=== PATIENT | female | born 1975 | race African-American/Black ===

== ENCOUNTER 2020-04-18 18:16 | Emergency (ER) | payer MEDICAID, OTHER ==
[~2020-04-18] VITALS: Ht 170.2 cm; Wt 97.3 kg
[2020-04-18] MEDS ORDERED: IBUPROFEN 600MG TABLET PO ONE (20:15)
[2020-04-18] MEDS ORDERED: HYDROCODONE/ACETAMINOPHEN 5/325MG TABLET PO ONE (23:30)
[2020-04-19 01:20] VITALS: BP 115/79
== END 2020-04-19 01:26 | disposition home or self-care (01) ==
LOC: ER 18:16
DX: M25.511 Pain in right shoulder (principal); M79.601 Pain in right arm; M54.5 Low back pain; V49.49XA Driver injured in collision with other motor vehicles in traffic accident, initial encounter; Y93.89 Activity, other specified; Y92.89 Other specified places as the place of occurrence of the external cause; Y99.8 Other external cause status; F12.10 Cannabis abuse, uncomplicated; J45.909 Unspecified asthma, uncomplicated
CPT/HCPCS: 71045; 72100; 73030; 73060; 99284

== ENCOUNTER 2021-05-20 20:03 | Emergency (ER) | payer MEDICAID, OTHER ==
[~2021-05-20] VITALS: Ht 167.6 cm; Wt 104.0 kg
[2021-05-20] MEDS ORDERED: ONDANSETRON 4MG ODT PO STA (21:08)
[2021-05-20] MEDS ORDERED: ACETAMINOPHEN 325MG TABLET PO STA (21:08)
[2021-05-20 21:47] LABS: BASOPHILS % 0.4 % (0.0-2.0); EOSINOPHILS % 4.7 % (0.0-5.0); HEMATOCRIT. 32.5 % (36.0-48.0); HEMOGLOBIN. 10.9 g/dL (12.0-16.0); LYMPHOCYTES % 46.2 % (20.0-50.0); MEAN CORPUSCULAR HEMOGLOBIN 30.1 pg (28.0-32.0); MEAN CORPUSCULAR VOLUME 89.6 fL (81.0-99.0); MEAN PLATELET VOLUME 7.8 fl (7.4-10.4); NEUTROPHILS % 41.7 % (40.0-76.0); PLATELET 262 x1000/uL (130-400); RED BLOOD CELL COUNT 3.62 mill/uL (4.2-5.4); RED CELL DISTRIBUTION WIDTH 13.1 % (11.6-14.6)
[2021-05-20 21:55] LABS: CHLORIDE 109 mEq/L (98-107)
[2021-05-20 21:58] LABS: HCG SCREEN NEGATIVE
[2021-05-20 22:00] LABS: ETHANOL BLOOD < 10 mg/dL
[2021-05-20] MEDS ORDERED: GABAPENTIN 100MG CAPSULE PO ONE (22:00)
[2021-05-20] MEDS ORDERED: ACETAMINOPHEN 325MG TABLET PO ONE (22:00)
[2021-05-20] MEDS ORDERED: LIDOCAINE 5% PATCH TOP SCH (22:00)
[2021-05-20] MEDS ORDERED: KETOROLAC 60MG/2ML VIAL IM ONE (22:45)
[2021-05-20 22:49] VITALS: BP 123/66
== END 2021-05-20 23:19 | disposition home or self-care (01) ==
LOC: ER 20:12
DX: M54.16 Radiculopathy, lumbar region (principal); J45.909 Unspecified asthma, uncomplicated; Z88.6 Allergy status to analgesic agent
CPT/HCPCS: 36415; 71045; 72100; 80053; 80320; 81025; 83605; 83690; 83880; 84484; 84703; 85025; 86850; 86900; 86901; 96372; 99284; J1885; Q0162; G0480

== ENCOUNTER 2021-08-31 03:37 | Emergency (ER) | payer MEDICAID, OTHER ==
[~2021-08-31] VITALS: Ht 167.6 cm; Wt 99.6 kg
[2021-08-31 03:42] VITALS: BP 147/79
[2021-08-31] MEDS ORDERED: HYDR453.3 TP (05:06)
== END 2021-08-31 05:15 | disposition home or self-care (01) ==
LOC: ER 03:37
DX: R21 Rash and other nonspecific skin eruption (principal); J45.909 Unspecified asthma, uncomplicated
CPT/HCPCS: 99282

== ENCOUNTER 2021-12-14 13:58 | Emergency (ER) | payer OTHER ==
[~2021-12-14] VITALS: Ht 167.6 cm; Wt 91.0 kg
[~2021-12-14 13:58] MED LIST: HYDR453.3 TP
[2021-12-14 14:09] VITALS: BP 125/78
[2021-12-14 15:36] LABS: CLARITY URINE CLOUDY (CLEAR); COLOR URINE DARK YELLOW (YELLOW); KETONES URINE TRACE (NEGATIVE); LEUKOCYTE ESTERASE URINE 2+ (NEGATIVE); NITRITE URINE NEGATIVE (NEGATIVE); OCCULT BLOOD URINE NEGATIVE (NEGATIVE); PROTEIN URINE 1+ (NEGATIVE); SPECIFIC GRAVITY URINE 1.038 (1.005-1.030)
[2021-12-14] MEDS ORDERED: CEPH500C2 MT (17:24)
[2021-12-14] MEDS ORDERED: METR-167 MT (17:24)
== END 2021-12-14 17:58 | disposition home or self-care (01) ==
LOC: ER 13:58
DX: N39.0 Urinary tract infection, site not specified (principal); N76.0 Acute vaginitis; J45.909 Unspecified asthma, uncomplicated; Z98.51 Tubal ligation status
CPT/HCPCS: 81003; 81025; 87210; 99283; Z7610

== ENCOUNTER 2022-09-26 17:25 | Emergency (ER) | payer OTHER ==
[~2022-09-26] VITALS: Ht 170.2 cm; Wt 103.0 kg
[~2022-09-26 17:25] MED LIST changes: +CEPH500C2 MT; +METR-167 MT
[2022-09-26] MEDS ORDERED: CEFTRIAXONE SODIUM 1 G/VIAL IM ONE (20:00)
[2022-09-26] MEDS ORDERED: METRONIDAZOLE 500MG TABLET PO ONE (20:00)
[2022-09-26 21:31] LABS: CLARITY URINE CLEAR (CLEAR); COLOR URINE YELLOW (YELLOW); KETONES URINE NEGATIVE (NEGATIVE); LEUKOCYTE ESTERASE URINE 3+ (NEGATIVE); NITRITE URINE NEGATIVE (NEGATIVE); OCCULT BLOOD URINE NEGATIVE (NEGATIVE); PH URINE 5.5 (4.5-8.0); PROTEIN URINE NEGATIVE (NEGATIVE); SPECIFIC GRAVITY URINE 1.004 (1.005-1.030); UROBILINOGEN URINE 0.2 E.U./dL (0.2-1.0)
[2022-09-26] MEDS ORDERED: DOXY100C5 MT (22:40)
[2022-09-26] MEDS ORDERED: METR-167 MT (22:40)
[2022-09-26 23:18] VITALS: BP 112/78
[2022-09-30 05:08] LABS: NEISSERIA GONORRHOEAE NAA Negative (Negative)
== END 2022-09-26 23:20 | disposition home or self-care (01) ==
LOC: ER 17:25
DX: N89.8 Other specified noninflammatory disorders of vagina (principal); J45.909 Unspecified asthma, uncomplicated; Z88.8 Allergy status to other drugs, medicaments and biological substances; Z98.51 Tubal ligation status
CPT/HCPCS: 81003; 81025; 87210; 87491; 87591; 96372; 99283; J0696; Z7610